=== PATIENT | male | born 1965 | race Caucasian/White ===

== ENCOUNTER 2018-04-21 16:09 | Emergency (ER) | payer MEDICAID ==
[~2018-04-21] VITALS: Ht 180.3 cm; Wt 123.7 kg
[~2018-04-21 16:09] MED LIST: OXYC-145 PO
[2018-04-21 16:47] LABS: CLARITY,URINE CLEAR (Clear); COLOR,URINE YELLOW (Yellow); GLUCOSE, URINE NEGATIVE (Neg); KETONES,URINE NEGATIVE (Neg); LEUKOCYTE ESTERASE ,URINE NEGATIVE (Neg); NITRITES, URINE NEGATIVE (Neg); OCCULT BLOOD,URINE NEGATIVE (Neg); PROTEIN,URINE NEGATIVE (Neg); UROBILINOGEN,URINE 0.2 E.U/dL (0.2-1.0)
[2018-04-21 16:50] LABS: UA COLLECTION TYPE CLN CATCH MIDSTREAM
[2018-04-21 16:56] LABS: HEMATOCRIT 45.8 % (42.0-52.0); HEMOGLOBIN 15.9 g/dl (14.0-17.9); RED BLOOD COUNT 4.92 X10'6 (4.70-6.10); WHITE BLOOD COUNT 6.6 X10'3 (4.5-11.0)
[2018-04-21 16:57] LABS: ALANINE AMINOTRANSFERASE 67 U/L (12-78); ALBUMIN 3.6 G/DL (3.4-5.0); ALKALINE PHOSPHATASE 67 IU/L (46-116); AMYLASE 144 U/L (25-115); ANION GAP 10 (8-16); ASPARTATE AMINO TRANSFERASE 40 U/L (10-37); BASOPHILS % (AUTO) 0.6 % (0-1); BILIRUBIN,TOTAL 0.4 MG/DL (0.1-1.0); BLOOD UREA NITROGEN 19 MG/DL (7-18); BUN/CREATININE RATIO 16.1 (5.4-32.0); CALCIUM 8.8 MG/DL (8.5-10.1); CHLORIDE 102 MMOL/L (99-107); CREATININE 1.18 MG/DL (0.60-1.10); EOSINOPHILS # (AUTO) 0.2 X10'3 (0-0.9); EOSINOPHILS % (AUTO) 3.7 % (0-6); GLUCOSE 104 MG/DL (70-104); LIPASE 203 U/L (73-393); LYMPHOCYTES # (AUTO) 2.1 X10'3 (1.1-4.8); LYMPHOCYTES % (AUTO) 31.8 % (21-51); MEAN CORPUSCULAR HEMOGLOBIN 32.3 PG (27.0-31.0); MEAN CORPUSCULAR HGB CONC 34.8 % (33.0-36.5); MEAN PLATELET VOLUME 9.3 FL (7.4-10.4); MONOCYTES # (AUTO) 0.6 X10'3 (0-0.9); MONOCYTES % (AUTO) 8.7 % (2-12); NEUTROPHILS # (AUTO) 3.7 X10'3 (1.8-7.7); NEUTROPHILS % (AUTO) 55.2 % (42-75); PLATELET COUNT 162 X10'3 (140-440); POTASSIUM 4.2 MMOL/L (3.5-5.1); SODIUM 138 MMOL/L (135-145); TOTAL CARBON DIOXIDE 25.8 MMOL/L (24-32); TOTAL PROTEIN 7.3 G/DL (6.4-8.2); eGFR 64 ML/MIN
[2018-04-21 17:25] LABS: PROTHROMBIN TIME 10.6 SECONDS (9.0-12.0)
[2018-04-21] MEDS ORDERED: LIDOcaine Viscous 15ml cup PO ONE (18:00)
[2018-04-21] MEDS ORDERED: pantoprazole 40mg Tablet.DR PO ONE (18:00)
[2018-04-21] MEDS ORDERED: famotidine 20mg tablet PO ONE (18:00)
[2018-04-21] MEDS ORDERED: ondansetron 4mg rapidly disintigrating tab PO ONE (18:00)
[2018-04-21] MEDS ORDERED: mag hydrox/Alum hydrox/simeth 30ml oral suspension PO ONE ×2 (18:00→18:40)
[2018-04-21] MEDS ORDERED: PANT-47 PO (18:38)
[2018-04-21 18:47] VITALS: BP 152/97
== END 2018-04-21 18:49 | disposition home or self-care (01) ==
LOC: ER 16:10
DX: K29.00 Acute gastritis without bleeding (principal); I10 Essential (primary) hypertension; Z79.899 Other long term (current) drug therapy; Z98.890 Other specified postprocedural states
CPT/HCPCS: 36415; 80053; 81003; 82150; 83690; 85025; 85610; 99284

== ENCOUNTER 2018-10-30 10:30 | Emergency (ER) | payer MEDICAID ==
[~2018-10-30] VITALS: Ht 180.3 cm; Wt 118.2 kg
[~2018-10-30 10:30] MED LIST changes: +PANT-47 PO
[2018-10-30 11:05] VITALS: BP 143/101
[2018-10-30] MEDS ORDERED: ondansetron/PF 4mg/2ml inj IV ONE (12:00)
[2018-10-30] MEDS ORDERED: morphine 4 MG/ML inj SYRINge IV PRN (12:00)
[2018-10-30] MEDS ORDERED: normal saline 1000ML IV soln IVB ONE (12:00)
[2018-10-30] MEDS ORDERED: magnesium hydroxide 30ml (MOM) UD suspension PO ONE (12:15)
[2018-10-30] MEDS ORDERED: LIDOcaine Viscous 15ml cup PO ONE (12:15)
[2018-10-30] MEDS ORDERED: famotidine 20mg tablet PO ONE (12:15)
[2018-10-30 12:37] LABS: BASOPHILS % (AUTO) 0.7 % (0-1); EOSINOPHILS # (AUTO) 0.1 X10'3 (0-0.9); EOSINOPHILS % (AUTO) 2.2 % (0-6); HEMATOCRIT 45.5 % (42.0-52.0); HEMOGLOBIN 15.8 g/dl (14.0-17.9); LYMPHOCYTES % (AUTO) 17.5 % (21-51); MEAN CORPUSCULAR HEMOGLOBIN 32.7 PG (27.0-31.0); MEAN CORPUSCULAR HGB CONC 34.7 g/dL (33.0-36.5); MEAN CORPUSCULAR VOLUME 94.4 FL (78-98); MEAN PLATELET VOLUME 8.7 FL (7.4-10.4); MONOCYTES # (AUTO) 0.6 X10'3 (0-0.9); MONOCYTES % (AUTO) 9.6 % (2-12); NEUTROPHILS # (AUTO) 4.1 X10'3 (1.8-7.7); PLATELET COUNT 135 X10'3 (140-440); RED BLOOD COUNT 4.83 X10'6 (4.70-6.10); RED CELL DISTRIBUTION WIDTH 12.9 % (11.5-14.5); WHITE BLOOD COUNT 5.8 X10'3 (4.5-11.0)
[2018-10-30 12:48] LABS: ALANINE AMINOTRANSFERASE 62 U/L (12-78); ALBUMIN 3.3 G/DL (3.4-5.0); ALBUMIN/GLOBULIN RATIO 0.9 (1.1-1.5); ALKALINE PHOSPHATASE 60 IU/L (46-116); ANION GAP 8 (8-16); ASPARTATE AMINO TRANSFERASE 37 U/L (10-37); BILIRUBIN,TOTAL 0.5 MG/DL (0.1-1.0); BLOOD UREA NITROGEN 16 MG/DL (7-18); BUN/CREATININE RATIO 17.6 (5.4-32.0); CALCIUM 8.7 MG/DL (8.5-10.1); CHLORIDE 105 MMOL/L (99-107); CREATININE 0.91 MG/DL (0.60-1.10); GLUCOSE 108 MG/DL (70-104); LIPASE 157 U/L (73-393); POTASSIUM 4.2 MMOL/L (3.5-5.1); SODIUM 139 MMOL/L (135-145); TOTAL CARBON DIOXIDE 26.5 MMOL/L (24-32); TOTAL PROTEIN 7.1 G/DL (6.4-8.2); eGFR 86 ML/MIN
[2018-10-30] MEDS ORDERED: ondansetron 4mg rapidly disintigrating tab PO ONE (12:55)
[2018-10-30] MEDS ORDERED: PANT-47 PO (12:55)
[2018-10-30] MEDS ORDERED: ONDA4TAB12 PO (12:55)
[2018-11-01] MEDS ORDERED: PROC25SU31 RC (19:04)
== END 2018-10-30 13:18 | disposition home or self-care (01) ==
LOC: ER 10:31
DX: K29.70 Gastritis, unspecified, without bleeding (principal); I10 Essential (primary) hypertension; F12.90 Cannabis use, unspecified, uncomplicated; K64.9 Unspecified hemorrhoids; K46.9 Unspecified abdominal hernia without obstruction or gangrene; Z98.890 Other specified postprocedural states; Z79.899 Other long term (current) drug therapy
CPT/HCPCS: 36415; 80053; 83690; 85025; 99284

== ENCOUNTER 2021-01-17 17:15 | Emergency (ER) | payer MEDICAID ==
[~2021-01-17] VITALS: Ht 182.9 cm; Wt 122.7 kg
[~2021-01-17 17:15] MED LIST changes: +ONDA4TAB12 PO; +ONDA8TAB6 PO; +SUCR1TAB34 PO
[2021-01-17 17:56] LABS: BASOPHILS % (AUTO) 0.8 % (0-1); EOSINOPHILS % (AUTO) 0.1 % (0-6); HEMATOCRIT 47.4 % (42.0-52.0); HEMOGLOBIN 16.2 g/dl (14.0-17.9); LYMPHOCYTES # (AUTO) 1.1 X10'3 (1.1-4.8); LYMPHOCYTES % (AUTO) 18.5 % (21-51); MEAN CORPUSCULAR HEMOGLOBIN 32.7 PG (27.0-31.0); MEAN CORPUSCULAR HGB CONC 34.2 g/dL (33.0-36.5); MEAN CORPUSCULAR VOLUME 95.7 FL (78-98); MEAN PLATELET VOLUME 9.4 FL (7.4-10.4); MONOCYTES # (AUTO) 0.4 X10'3 (0-0.9); MONOCYTES % (AUTO) 5.8 % (2-12); NEUTROPHILS # (AUTO) 4.6 X10'3 (1.8-7.7); NEUTROPHILS % (AUTO) 74.8 % (42-75); PLATELET COUNT 162 X10'3 (140-440); RED BLOOD COUNT 4.95 X10'6 (4.70-6.10); RED CELL DISTRIBUTION WIDTH 12.5 % (11.5-14.5); WHITE BLOOD COUNT 6.2 X10'3 (4.5-11.0)
[2021-01-17 18:13] LABS: ALANINE AMINOTRANSFERASE 96 U/L (12-78); ALBUMIN 3.9 G/DL (3.4-5.0); ALKALINE PHOSPHATASE 69 IU/L (46-116); ANION GAP 15 (8-16); ASPARTATE AMINO TRANSFERASE 57 U/L (10-37); BILIRUBIN,TOTAL 0.6 MG/DL (0.1-1.0); BLOOD UREA NITROGEN 16 MG/DL (7-18); BUN/CREATININE RATIO 14.8 (5.4-32.0); CALCIUM 8.9 MG/DL (8.5-10.1); CHLORIDE 103 MMOL/L (99-107); CREATININE 1.08 MG/DL (0.60-1.10); GLUCOSE 128 MG/DL (70-104); LIPASE 90 U/L (73-393); POTASSIUM 3.9 MMOL/L (3.5-5.1); SODIUM 140 MMOL/L (135-145); TOTAL CARBON DIOXIDE 22.4 MMOL/L (24-32); TOTAL PROTEIN 7.7 G/DL (6.4-8.2); eGFR 70 ML/MIN
[2021-01-17] MEDS ORDERED: ondansetron/PF 4mg/2ml inj IV ONE (18:25)
[2021-01-17] MEDS ORDERED: morphine 4 MG/ML inj SYRINge IV PRN (18:25)
[2021-01-17] MEDS ORDERED: normal saline 1000ML IV soln IVB ONE (18:25)
[2021-01-17] MEDS ORDERED: iohexol 300mg/ml 100ml inj. ONE (18:52)
[2021-01-17] MEDS ORDERED: haloperidol lactate 5mg/ml inj IM ONE (20:40)
[2021-01-17] MEDS ORDERED: ketorolac trometh. 30mg/ml inj. IV ONE (20:40)
[2021-01-17] MEDS ORDERED: diphenhydrAMINE 50 mg/ml inj IV ONE (20:40)
[2021-01-17] MEDS ORDERED: FAMO20TA47 PO (21:24)
[2021-01-17] MEDS ORDERED: DIPH25CA83 PO (21:24)
[2021-01-17] MEDS ORDERED: PROC-8 PO (21:24)
[2021-01-17 21:30] VITALS: BP 197/78
== END 2021-01-17 21:31 | disposition home or self-care (01) ==
LOC: ER 17:15
DX: R10.84 Generalized abdominal pain (principal); Z20.822 Contact with and (suspected) exposure to COVID-19; R11.2 Nausea with vomiting, unspecified; R53.1 Weakness; I10 Essential (primary) hypertension; F12.90 Cannabis use, unspecified, uncomplicated; Z87.11 Personal history of peptic ulcer disease; Z98.890 Other specified postprocedural states; Z72.89 Other problems related to lifestyle; Z79.899 Other long term (current) drug therapy
CPT/HCPCS: 36415; 74177; 80053; 83690; 85025; 87635; 93005; 96372; 96374; 96375; 99285; C9803; J1200; J1630; J1885; J2270; J2405; J7030; Q9967

== ENCOUNTER 2021-01-20 08:26 | Emergency (ER) | payer MEDICAID ==
[~2021-01-20] VITALS: Ht 182.9 cm; Wt 122.7 kg
[~2021-01-20 08:26] MED LIST changes: +DIPH25CA83 PO; +FAMO20TA47 PO; +PROC-8 PO
[2021-01-20 08:35] VITALS: BP 168/103
[2021-01-20 09:18] LABS: BASOPHILS # (AUTO) 0.1 X10'3 (0-0.2); BASOPHILS % (AUTO) 0.8 % (0-1); EOSINOPHILS % (AUTO) 0.2 % (0-6); HEMOGLOBIN 16.1 g/dl (14.0-17.9); LYMPHOCYTES # (AUTO) 1.5 X10'3 (1.1-4.8); MEAN CORPUSCULAR HGB CONC 34.3 g/dL (33.0-36.5); MEAN CORPUSCULAR VOLUME 93.3 FL (78-98); MEAN PLATELET VOLUME 9.1 FL (7.4-10.4); MONOCYTES # (AUTO) 0.7 X10'3 (0-0.9); MONOCYTES % (AUTO) 11.9 % (2-12); NEUTROPHILS # (AUTO) 3.7 X10'3 (1.8-7.7); NEUTROPHILS % (AUTO) 62.1 % (42-75); PLATELET COUNT 137 X10'3 (140-440); RED BLOOD COUNT 5.04 X10'6 (4.70-6.10); RED CELL DISTRIBUTION WIDTH 12.7 % (11.5-14.5)
[2021-01-20 09:33] LABS: ALANINE AMINOTRANSFERASE 77 U/L (12-78); ALBUMIN 3.7 G/DL (3.4-5.0); ALKALINE PHOSPHATASE 64 IU/L (46-116); ANION GAP 9 (8-16); ASPARTATE AMINO TRANSFERASE 45 U/L (10-37); BILIRUBIN,TOTAL 0.8 MG/DL (0.1-1.0); BLOOD UREA NITROGEN 11 MG/DL (7-18); BUN/CREATININE RATIO 10.4 (5.4-32.0); CALCIUM 8.9 MG/DL (8.5-10.1); CHLORIDE 104 MMOL/L (99-107); CREATININE 1.06 MG/DL (0.60-1.10); GLUCOSE 109 MG/DL (70-104); LIPASE 118 U/L (73-393); SODIUM 144 MMOL/L (135-145); TOTAL CARBON DIOXIDE 31.2 MMOL/L (24-32); TOTAL PROTEIN 7.5 G/DL (6.4-8.2); eGFR 72 ML/MIN
== END 2021-01-20 17:04 | disposition left against medical advice (07) ==
LOC: ER 08:27
DX: R11.0 Nausea (principal); Z53.21 Procedure and treatment not carried out due to patient leaving prior to being seen by health care provider
CPT/HCPCS: 36415; 80053; 83690; 85025

== ENCOUNTER 2022-08-16 07:56 | Day surgery (SDC) | payer MEDICAID ==
[~2022-08-16] VITALS: Ht 182.9 cm; Wt 118.2 kg
[2022-08-16 08:06] VITALS: BP 142/98
[2022-08-16] MEDS ORDERED: fentaNYL/PF 50MCG/1 ML 2ML syringe ONE (08:09)
[2022-08-16] MEDS ORDERED: MIDAZolam 1 MG/ML 5ML VIAL ONE (08:09)
[2022-08-16] MEDS ORDERED: LISI20TA28 PO (08:12)
[2022-08-16] MEDS ORDERED: VITA-273 (08:12)
[2022-08-16] MEDS ORDERED: diphenhydrAMINE 50 mg/ml inj ONE (09:59)
[2022-08-16 10:30] VITALS: BP 137/68
[2022-08-16 10:40] VITALS: BP 131/95
[2022-08-16 10:50] VITALS: BP 130/88
[2022-08-16 11:00] VITALS: BP 136/81
== END 2022-08-16 11:10 | disposition home or self-care (01) ==
LOC: GI LAB 07:56
PROVIDERS: ATTEND Internal Medicine Gastroenterology
DX: Z09 Encounter for follow-up examination after completed treatment for conditions other than malignant neoplasm (principal); D12.2 Benign neoplasm of ascending colon; D12.5 Benign neoplasm of sigmoid colon; D12.8 Benign neoplasm of rectum; K57.30 Diverticulosis of large intestine without perforation or abscess without bleeding; K64.8 Other hemorrhoids
CPT/HCPCS: 45380; 45385; 99152; 99153; J1200; J2250; J3010; J7030; Z7512; A4620; C1889